=== PATIENT | male | born 1985 | race Caucasian/White ===

== ENCOUNTER 2021-08-24 10:16 | Inpatient (IN) | payer OTHER, SELFPAY ==
[2021-08-24] VITALS (37 sets, daily range): BP systolic 125–161; BP diastolic 71–109; PULSE 56–101; RESP 9–22; TEMP 36.2–36.9; O2SAT 98–100; BMI 27.3
--- NOTE | 2021-08-24 | ECHO_ITS ---
Patient Info Name: Danyel Alva Age: 35 years : 1985 Gender: Male Ht: 67 in Wt: 167 lbs BSA: 1.91 m2 HR: 69 bpm BP: 148 / 96 mmHg Heart Rhythm: Sinus Rhythm Technical Quality: Good Exam Date: 08/24/2021 4:19 PM Exam Location: [facility] Room: 211 Patient Status: Inpatient Admit Date: 08/24/2021 Staff Ordering Physician: Marcela Minaya NP Architectural Design Lecturer: Charlotte Stauffer RDCS Attending Provider: Silvia Goyal MD Referring Physician: Rei LACEY; Exam Type: CA echo doppler color flow Study Info Indications - CHEST PAIN Complete two-dimensional, color flow and Doppler transthoracic echocardiogram is performed. Summary 1. Complete two-dimensional, color flow and Doppler transthoracic echocardiogram is performed. 2. Left ventricular chamber dimension is normal. 3. Left ventricular systolic function is normal, estimated at >70%. 4. There is mildly increased left ventricular wall thickness. 5. The left ventricular diastolic function is normal. 6. There is mild mitral valve regurgitation. 7. There is mild tricuspid valve regurgitation. Left Ventricle Left ventricular chamber dimension is normal. Left ventricular systolic function is normal, estimated at >70%. There is mildly increased left ventricular wall thickness. The left ventricular diastolic function is normal. Right Ventricle Right ventricular chamber dimension is normal. Right ventricular systolic function is normal. Left Atria Left atrial chamber dimension is normal. Right Atria Right atrial chamber dimension is normal. Atrial Septum Intact interatrial septum visualized by color flow imaging. Aortic Valve The aortic valve is trileaflet. There is mild aortic valve sclerosis. There is no aortic valve stenosis. There is trace aortic valve regurgitation. Pulmonic Valve The pulmonic valve is normal. There is no pulmonic valve stenosis. There is trace pulmonic regurgitation. Mitral Valve The mitral valve has normal leaflets. There is no mitral valve stenosis. There is mild mitral valve regurgitation. Tricuspid Valve The tricuspid valve leaflets are normal. There is no significant tricuspid valve stenosis. There is mild tricuspid valve regurgitation. No pulmonary hypertension, estimated pulmonary arterial systolic pressure is 27 mmHg. Pericardium/Pleural The pericardium appears normal. There is no pericardial effusion. Inferior Vena Cava Normal inferior vena cava with >50% collapse upon inspiration consistent with normal right atrial pressure, 10 mmHg. Aorta The aortic root size at the sinus of Valsalva is normal. The prox ascending aorta size is normal. Left Ventricular Outflow Tract Name Value Normal LVOT 2D LVOT Diameter 2.1 cm LVOT Doppler LVOT Peak Gradient 7 mmHg LVOT Mean Gradient 4 mmHg LVOT VTI 25 cm LVOT VTI/AV VTI Ratio 1.0 LVOT Stroke Volume 82 ml LVOT CO 18.8 l
--- NOTE | ~2021-08-24 | XR_ITS ---
EXAMINATION: XR chest 2V DATE: 08/24/2021 10:44 INDICATION: Left chest pain. TECHNIQUE: Frontal and lateral views of the chest were obtained. COMPARISON: None. FINDINGS: The chest demonstrates clear lungs without pneumonia, pleural effusion, or pneumothorax. Th e heart size is normal. IMPRESSION: 1. No acute cardiopulmonary disease. Reviewed, dictated and finalized at location A. L MAIL CARRIER
--- NOTE | ~2021-08-24 | XR_ITS ---
EXAMINATION: XR facial bones min 3V EXAM DATE: 08/24/2021 17:53 INDICATION: Dental implants, pain at these locations. TECHNIQUE: Frontal and lateral, submentovertex projections of the dental implants. There is no prio r study for comparison. FINDINGS: There are 3 maxillary dental implants identified, 2 on the left and one on the right. Thes e appear well-seated, but please note dental x-rays are significantly more sensitive for erosive carlos ge. Visualized sinuses appear well-aerated. IMPRESSION: Unremarkable XR facial bones min 3V exam. Reviewed, dictated and finalized at location A. BOARD MECHANIC
--- NOTE | ~2021-08-24 | CT_ITS ---
EXAMINATION: CTA chest PE protocol DATE: 08/24/2021 12:15 INDICATION: Chest pain TECHNIQUE: Computed tomography angiography (CTA) of the chest was performed with 100 mL Omnipaque-350 intravenous contrast timed to evaluate the pulmonary arteries. Coronal maximum intensity projection 3D-reconstructions were created by the technologist. The dose-length product (DLP) was 395.16 mGy-cm. Automated exposure control and iterative reconstruction technique were employed. COMPARISON: None. FINDINGS: The pulmonary arteries are well-opacified. No pulmonary embolism is identified. There is de pendent atelectasis. The lungs are free of focal airspace opacities. There is no pleural effusion or pneumothorax. No pathologically enlarged thoracic lymph nodes are identified. The heart size is isiah l. IMPRESSION: 1. No pulmonary embolism or acute cardiopulmonary abnormality. Reviewed, dictated and finalized at location A. AULIC SPINNER
--- NOTE | 2021-08-24 10:18 | ECG_ITS ---
Measurements Intervals [place] Rate: 100 P: 63 RI: 134 QRS: 50 QRSD: 89 T: 55 QT: 336 QTc: 434 Interpretive Statements SINUS TACHYCARDIA BORDERLINE ST-T WAVE ABNORMALITY- DIFFUSE LEADS BASELINE ARTIFACT- I, II, III, AVR, AVL, AVF, V3-V5 BORDERLINE ECG Electronically Signed On 08-24-2021 10:28:52 SURGICAL TECH by Dipesh Lindsay D.O.
[2021-08-24 10:45] LABS: Basophils Percent Auto 0.4 % (0.2-1.2); Eosinophils Absolute Auto 0.2 K/mm3 (0-0.3); Eosinophils Percent Auto 2.3 % (0-4.4); Hematocrit 39.8 % (42.0-52.0); Immature Granulocyte Absolute 0.02 K/mm3 (0.00-0.031); Immature Granulocyte Percent A 0.3 % (0-0.5); Lymphocytes Absolute Auto 1.94 K/mm3 (0.9-3.2); Lymphocytes Percent Auto 26.1 % (18.3-44.2); Mean Corpuscular HGB Conc 35.2 g/dl (32-36); Mean Corpuscular Hemoglobin 30.3 pg (26-34); Mean Corpuscular Volume 86.1 fl (80-100); Mean Platelet Volume 9.6 fl (7.4-10.4); Monocytes Absolute Auto 0.6 K/mm3 (0.1-0.6); Monocytes Percent Auto 8.5 % (2.6-8.5); Neutrophils Absolute Auto 4.6 K/mm3 (1.3-6.7); Neutrophils Percent Auto 62.4 % (45.5-73.1); Platelet Count Result 355 k/mm3 (150-375); Red Blood Count 4.62 M/mm3 (4.6-6.20); White Blood Count 7.4 K/mm3 (4.5-10.0)
[2021-08-24 10:54] LABS: INR 0.9; Prothrombin Time 12.1 Seconds (11.1-14.7)
[2021-08-24 10:55] LABS: Partial Thromboplastin Time 22.9 SECONDS (22.3-36.8)
[2021-08-24 10:59] LABS: Alanine Aminotransferase 60 U/L (4-50); Albumin Level 4.6 g/dL (3.5-5.1); Alkaline Phosphatase 79 U/L (38-126); Anion Gap 11 mmol/L (8-16); Aspartate Amino Transferase 60 U/L (17-59); Bilirubin,Total 0.4 mg/dL (0.2-1.3); Blood Urea Nitrogen 12 mg/dL (9-20); Calcium 9.2 mg/dL (8.4-10.2); Carbon Dioxide 27 mmol/L (22-30); Chloride 99 mmol/L (98-107); Estimated CRCL calculation 104 ml/min; Estimated Glomerular Filt Rate > 60; Glucose 190 mg/dL (65-110); Lipase 23 U/L (23-300); Potassium 3.3 mmol/L (3.4-5.0); Sodium 137 mmol/L (137-145)
[2021-08-24] MEDS: ASPIRIN 81 MG CHEWABLE TABLET 324 MG PO (11:35)
--- NOTE | 2021-08-24 12:05 | PC.NURSE ---
Pt gone to CT
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
[2021-08-24] MEDS: SODIUM CHLORIDE 0.9% IV 1,000 ML 125 ML IV CONT (14:08)
[2021-08-24] MEDS: HEPARIN SODIUM 5,000 UNITS/ML VIAL 4000 UNITS IV PUSH (14:13)
[2021-08-24] MEDS: HEPARIN SOD/D5W 100 UNITS/ML 25,000 UNITS/250 ML BAG 9 UNITS IV CONT (14:13)
[2021-08-24] MEDS: POTASSIUM CHLORIDE 20 MEQ PACKET (FOR LIQUID) PO (14:15)
[2021-08-24] MEDS: AMOXICILLIN 500 MG CAPSULE PO ×2 (14:30→20:50)
--- NOTE | 2021-08-24 14:30 | PC.NURSE ---
Indoor Landscape Architect at bedside
--- NOTE | 2021-08-24 14:31 | PC.NURSE ---
Running heparin alone will continue NS maintenance fluids in another site
--- NOTE | 2021-08-24 14:40 | PC.NURSE ---
Report given to Rosario DORANTES
--- NOTE | 2021-08-24 15:11 | PC.NURSE ---
Traveling with fluids and heparin drip
--- NOTE | 2021-08-24 15:27 | PM.CNCAR ---
Assessment and Plan Assessment and plan (1) Chest pain: Qualifiers: Chest pain type: unspecified Qualified Code(s): R07.9 - Chest pain, unspecified Code(s): R07.9 - Chest pain, unspecified Status: Acute Assessment and Plan: Not typical for ACS but certainly possible. He has few risk factors for coronary disease and was very active yesterday moving boxes has he was assisting his in-laws and moving into a new house. The fact that he had a similar episode a year ago and his description points towards other etiology including possible pericarditis, myocarditis (recent COVID infection) but again ACS is not excluded. Will continue trend with serial cardiac enzymes. Will keep NPO after midnight for possible coronary angiogram tomorrow. Stat 2D echocardiogram with Doppler. Will check an ESR as well as a CRP. Will start metoprolol tartrate at 25 mg p.o. b.i.d.. Aspirin 81 mg p.o. daily to be given also. At least for now, heparin drip will be initiated until other workup is performed. No pericardial effusion was seen on CT scan. Will also check a fasting lipid panel as well as a glycohemoglobin given his elevated glucose. EKG in the morning (2) Tobacco use: Code(s): Z72.0 - Tobacco use Status: Acute Assessment and Plan: Tobacco abuse counseling performed and cessation recommended (3) Elevated troponin: Code(s): R77.8 - Other specified abnormalities of plasma proteins Status: Acute Assessment and Plan: As detailed above (4) Hypokalemia: Code(s): E87.6 - Hypokalemia Status: Acute Assessment and Plan: KCL 40 mg p.o. x1. History of Present Illness History of Present Illness Consult date/time: 08/24/21 15:27 Requesting physician: Trung Garcia MD Consult reason: chest pain Reason For Visit: elevated troponin Narrative: Reason for consultation: Chest pain, elevated troponins Date of service 08/24/2021 next Requesting provider: Dr. Garcia History: Patient is a 35-year-old male presented to the hospital because chest pain. Patient has been having chest pain off and on for the past 2-3 days. His episodes occur randomly will last for 10-30 minutes at a time. He does think that it is improved whenever he lifts his arms above his head. Sometimes he thinks it may get better if he rubs his chest or if he sits up. It is not necessarily exertional. He had a similar episode last year while in [place]. Last years episodes lasted off and on for couple of months. He did see a physician who told him it was stress related. His white blood cell count was also a little bit elevated at that time. No further workup for details are known except for that he states that the EKG performed at that time was unremarkable. His chest pain was severe this morning and he decided to come to the hospital for further workup. His troponins initially are 1.25 and follow-up troponin is 1.5. He has no associated nausea, shortness of breath or diaphoresis. It does not radiate to his jaw and back. He does have a little bit of radiation towards the left shoulder area. It occurs 3-4 times daily. He was helping to move his in-laws yesterday and performing heavy activity and had no problems in doing so. He has been taking a combination of Tylenol and NSAIDs at the same time which also seems to help. He did have COVID a few weeks ago and was diagnosed on August 05 and had a few days worth of symptoms prior to that. Symptoms of COVID include fever muscle aches. He does smoke cigarettes and rare marijuana use but no other drug use. No other risk factors. He is currently pain-free Review of Systems Review of Systems: All systems reviewed & are unremarkable except as noted in HPI and below Constitutional: Constitutional: Denies weakness Eyes: Eyes: Denies blurry vision ENT: Reports Normal hearing present Cardiovascular: Cardiovascular: Reports chest pain Respirato
[2021-08-24] MEDS: POTASSIUM CHLORIDE 20 MEQ TABLET 40 MEQ PO (16:19)
[2021-08-24 16:25] LABS: Basophils Percent Auto 0.4 % (0.2-1.2); Eosinophils Absolute Auto 0.1 K/mm3 (0-0.3); Eosinophils Percent Auto 1.1 % (0-4.4); Hematocrit 36.6 % (42.0-52.0); Hemoglobin 12.5 g/dL (14.0-18.0); Immature Granulocyte Absolute 0.03 K/mm3 (0.00-0.031); Immature Granulocyte Percent A 0.3 % (0-0.5); Lymphocytes Absolute Auto 2.19 K/mm3 (0.9-3.2); Lymphocytes Percent Auto 22.8 % (18.3-44.2); Mean Corpuscular HGB Conc 34.2 g/dl (32-36); Mean Corpuscular Hemoglobin 30.1 pg (26-34); Mean Corpuscular Volume 88.2 fl (80-100); Mean Platelet Volume 9.8 fl (7.4-10.4); Monocytes Absolute Auto 0.6 K/mm3 (0.1-0.6); Neutrophils Absolute Auto 6.7 K/mm3 (1.3-6.7); Neutrophils Percent Auto 69.4 % (45.5-73.1); Platelet Count Result 318 k/mm3 (150-375); Red Blood Count 4.15 M/mm3 (4.6-6.20); Red Cell Distribution Width 13.2 % (11.5-14.5); White Blood Count 9.6 K/mm3 (4.5-10.0)
--- NOTE | 2021-08-24 16:31 | ADMGEN ---
This patient, Danyel Alva, was admitted to IMU Room 211-01 at 1510. Patient/family oriented to hospital policies and general routines including ID bracelet, bed and alarms, visiting hours, pain management, procedures, bathroom and other care routines, personal items, smoking policy, room service/diet, and visiting hours. Information on how to activate the Rapid Response Team has been discussed. Patient/Family are encouraged to report perceived risks to care and to ask questions if they do not understand what they are told or what they should do.
[2021-08-24 16:36] LABS: Prothrombin Time 13.4 Seconds (11.1-14.7)
[2021-08-24 16:37] LABS: Partial Thromboplastin Time 77.9 SECONDS (22.3-36.8)
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
[2021-08-24 17:18] LABS: CRP < 0.5 mg/dL (<1.0); Cholesterol 233 mg/dL (0-200); HDL Direct 44 mg/dL; Triglycerides 97 mg/dL (<150)
[2021-08-24 17:29] LABS: LDL Cholesterol Direct 154 mg/dL
[2021-08-24 17:39] LABS: Erythrocyte Sedimentation Rate 19 mm/hr (0-20)
[2021-08-24 19:28] LABS: Hemoglobin A1C 5.8 % (<5.7)
[2021-08-24 19:52] LABS: Partial Thromboplastin Time 56.2 SECONDS (22.3-36.8)
[2021-08-24] MEDS: HEPARIN SODIUM 5,000 UNITS/ML VIAL 3000 UNITS IV PUSH (20:49)
[2021-08-24] MEDS: METOPROLOL TARTRATE 25 MG TABLET PO (20:50)
[2021-08-24] MEDS: SODIUM CHLORIDE 0.9% IV 1,000 ML 75 ML IV CONT (20:50)
[2021-08-25] VITALS (16 sets, daily range): BP systolic 118–141; BP diastolic 70–86; PULSE 56–103; RESP 15–20; TEMP 36.2–36.6; O2SAT 93–99
[2021-08-25 03:29] LABS: Basophils Percent Auto 0.5 % (0.2-1.2); Eosinophils Absolute Auto 0.2 K/mm3 (0-0.3); Eosinophils Percent Auto 2.9 % (0-4.4); Hematocrit 36.8 % (42.0-52.0); Hemoglobin 12.6 g/dL (14.0-18.0); Immature Granulocyte Absolute 0.02 K/mm3 (0.00-0.031); Immature Granulocyte Percent A 0.3 % (0-0.5); Lymphocytes Absolute Auto 3.28 K/mm3 (0.9-3.2); Lymphocytes Percent Auto 41.1 % (18.3-44.2); Mean Corpuscular HGB Conc 34.2 g/dl (32-36); Mean Corpuscular Hemoglobin 30.1 pg (26-34); Mean Platelet Volume 9.6 fl (7.4-10.4); Monocytes Absolute Auto 0.7 K/mm3 (0.1-0.6); Monocytes Percent Auto 8.4 % (2.6-8.5); Neutrophils Absolute Auto 3.8 K/mm3 (1.3-6.7); Neutrophils Percent Auto 46.8 % (45.5-73.1); Platelet Count Result 283 k/mm3 (150-375); Red Blood Count 4.18 M/mm3 (4.6-6.20); Red Cell Distribution Width 13.3 % (11.5-14.5)
[2021-08-25 03:41] LABS: Alanine Aminotransferase 59 U/L (4-50); Alkaline Phosphatase 72 U/L (38-126); Anion Gap 4 mmol/L (8-16); Aspartate Amino Transferase 57 U/L (17-59); Bilirubin,Total 0.4 mg/dL (0.2-1.3); Blood Urea Nitrogen 8 mg/dL (9-20); Calcium 8.7 mg/dL (8.4-10.2); Carbon Dioxide 27 mmol/L (22-30); Chloride 105 mmol/L (98-107); Estimated CRCL calculation 113 ml/min; Estimated Glomerular Filt Rate > 60; Glucose 109 mg/dL (65-110); Lactic Acid Reflex 0.7 mmol/L (0.7-2.1); Potassium 3.9 mmol/L (3.4-5.0); Sodium 136 mmol/L (137-145)
[2021-08-25 03:49] LABS: Partial Thromboplastin Time 93.8 SECONDS (22.3-36.8)
[2021-08-25] MEDS: AMOXICILLIN 500 MG CAPSULE PO ×2 (05:03→15:50)
[2021-08-25 07:55] LABS: Glucose Point of Care 116 mg/dl (65-105)
--- NOTE | 2021-08-25 08:00 | ECG_ITS ---
Measurements Intervals [place] Rate: 76 P: 34 [place]: 122 QRS: 42 QRSD: 90 T: 76 QT: 367 QTc: 415 Interpretive Statements SINUS RHYTHM NONSPECIFIC T-WAVE ABNORMALITY- HIGH LATERAL LEADS BORDERLINE ECG Electronically Signed On 08-25-2021 16:35:17 RESIDENTIAL PROPERTY CONSULTANT by Dipesh Lindsay D.O.
[2021-08-25] MEDS: SODIUM CHLORIDE 0.9% IV 1,000 ML 75 ML IV CONT (10:26)
[2021-08-25] MEDS: ASPIRIN 81 MG ENTERIC TABLET PO (10:27)
[2021-08-25] MEDS: METOPROLOL TARTRATE 25 MG TABLET PO (10:27)
[2021-08-25] MEDS: LORATADINE 10 MG TABLET PO (10:41)
--- NOTE | 2021-08-25 12:21 | PM.IMPN ---
Progress Note: A&P Assessment and Plan (1) Chest pain: Qualifiers: Chest pain type: unspecified Qualified Code(s): R07.9 - Chest pain, unspecified Code(s): R07.9 - Chest pain, unspecified Status: Acute Assessment and Plan: Troponin to 2.7. EKG showing diffuse ST-T wave changes. Heparin drip was started. Continue ASA. Cardiology has been consulted. No further complaints of any chest pain. Echo showing no wall motion abnormalities with normal diastolic dysfunction and EF 70%. Probably pericarditis but plan for [facility] to rule out ischemic coronary disease. Follow-up on heart catheterization results. Check urine drug screen. (2) Elevated troponin: Code(s): R77.8 - Other specified abnormalities of plasma proteins Status: Acute Assessment and Plan: As above. (3) Hypokalemia: Code(s): E87.6 - Hypokalemia Status: Acute Assessment and Plan: Potassium slightly low on admission at 3.3. This was replaced and has normalized. Continue to monitor. (4) Elevated blood pressure reading: Code(s): R03.0 - Elevated blood-pressure reading, without diagnosis of hypertension Status: Acute Assessment and Plan: Blood pressure was 159/109 on admission. He was started on metoprolol with improvement. Continue to monitor. Continue to adjust medications as needed. (5) Elevated blood sugar: Code(s): R73.9 - Hyperglycemia, unspecified Status: Acute Assessment and Plan: Glucose was 190 on admission. Fasting glucose was 109 this morning. A1c of okay at 5.8. Continue AccuCheks covering with sliding scale. Hypoglycemia protocol available as needed. Continue to monitor. Benefits of leading a healthy lifestyle have been discussed. 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 He was started empirically on amoxicillin for possible dental infection. Blood cultures were collected and are no growth to date. Facial CT showing no acute findings. (7) Tobacco use: Code(s): Z72.0 - Tobacco use Status: Acute Assessment and Plan: Patient was educated about the benefits of smoking cessation. Subjective Date/time seen: 08/25/21 12:21 Interval history: 35yo male with hx of tobacco abuse here for chest pain and found to have elevated Troponin. 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 Again, no chest pain symptoms until the morning of 08/24 which he awoke from. He describes it as 'sore' and 'tight and occasionally heavy'. No SOB or nausea. Did take tylenol and ibuprofen before he presented tot he ED and pain resolved. No HTN, DM, HLD. No calf pain. COVID diagnosed on 08/05. he is unvaccinated. He has hx of dental implants 9-10 yrs ago. The upper row was sore but better now. He does not have a doctor or dentist. he smokes 1/2ppd but has smoked up to 1ppd x 14yrs. Exam Narrative: AF 97.9 122/77 103 16 99% ra Gen - NARD Chest - CTA bilaterally, nml RR CV - RRR S1/S2; Tele showing occasional sinus tachycardia Abd - Soft, NT/ND, Positive BS Ext - No pedal edema Neuro - Alert and oriented. Nonfocal exam. Psych - Nml mood and affect Skin - Warm and dry Objective Data Vital Signs Vital Signs: Vital Signs - 24 hr 08/24/21 12:25 08/24/21 12:30 08/24/21 12:42 Temperature Pulse Rate 80 90 85 Respiratory Rate 15 22 H 12 Blood Pressure 140/85 Pulse Oximetry 08/24/21 12:45 08/24/21 12:51 08/24/21 13:00 Temperature Pulse Rate 66 101 H 76 Respiratory Rate 9 L 19 14 Blood Pressure 154/96 H Pulse Oximetry 98 08/24/21 13:15 08/24
--- NOTE | 2021-08-25 12:33 | WPDMODSED ---
Moderate Sedation Note-Pt Data Patient Data Diagnosis: Chest pain with elevated troponin Present Complaint: no complaints currently Procedure to be performed/Plan: left heart catheterization Allergies Allergy/AdvReac Type Severity Reaction Status Date / Time No Known Drug Allergies Allergy Unknown Verified 08/24/21 11:20 Home Medications Medication Instructions Recorded Confirmed Type loratadine [Claritin] 10 mg PO DAILY 08/24/21 08/24/21 History Current Medications: Active Medications Amoxicillin (Amoxicillin 500 Mg Capsule) 500 mg PO Q8HR [facility] Last Admin: 08/25/21 05:03 Dose: 500 mg Documented by: Aspirin (Aspirin 81 Mg Enteric Tablet) 81 mg PO QAM [facility] Last Admin: 08/25/21 10:27 Dose: 81 mg Documented by: Dextrose (Dextrose 50% 25 Gm/50 Ml Syringe) 12.5 gm IV PUSH PRN PRN; Protocol PRN Reason: Hypoglycemia Glucagon (Glucagon For Inj 1 Mg Vial) 1 mg IM PRN PRN; Protocol PRN Reason: Hypoglycemia Glucose (Glucose Oral Gel 15 Gm Of Glucse In 37.5 Gm Tube) 15 gm PO PRN PRN; Protocol PRN Reason: Hypoglycemia Heparin Sodium (Porcine) (Heparin Sodium 5,000 Units/Ml Vial) 4,000 units IV PUSH PRN PRN PRN Reason: aPTT less than 55 seconds Heparin Sodium (Porcine) (Heparin Sodium 5,000 Units/Ml Vial) 3,000 units IV PUSH PRN PRN PRN Reason: aPTT 55 - 70 seconds Last Admin: 08/24/21 20:49 Dose: 3,000 units Documented by: Heparin Sodium/Dextrose (Heparin Sodium/D5w 100 Units/Ml) 25,000 units in 250 mls @ 0 mls/hr IV CONT .Q0M [facility]; Protocol Last Titration: 08/25/21 10:34 Dose: 0 units/hr, 0 mls/hr Documented by: Acetaminophen (Ofirmev 1,000 Mg Ivpb) 1,000 mg in 100 mls @ 400 mls/hr IVPB Q6H PRN PRN Reason: Mild Pain (1-3) or Fever Stop: 08/25/21 13:14 Sodium Chloride (Normal Saline Iv) 1,000 mls @ 75 mls/hr IV CONT .[id number] [facility] Last Admin: 08/25/21 10:26 Dose: 75 mls/hr Documented by: Dextrose (Dextrose 5% 1,000 Ml) 1,000 mls @ 100 mls/hr IVPB PRN PRN; Protocol PRN Reason: Hypoglycemia Insulin Aspart (Insulin Aspart (*Bkc) 100 Units/Ml) 2 - 5 units SUB-Q TIDWM ABHISHEK; Protocol Last Admin: 08/25/21 10:19 Dose: Not Given Documented by: Loratadine (Loratadine 10 Mg Tablet) 10 mg PO DAILY [facility] Last Admin: 08/25/21 10:41 Dose: 10 mg Documented by: Metoprolol Tartrate (Metoprolol Tartrate 25 Mg Tablet) 25 mg PO Q12HR [facility] Last Admin: 08/25/21 10:27 Dose: 25 mg Documented by: Sedation/Anesthesia: No previous sedation/anesthesia problems (including family history). 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 She recently moved here from [place]. The patient continues to smoke about half pack a cigarettes a day. He typically does not drink any alcohol but said he had a couple shots of alcohol (vodka) this morning because his left jaw was hurting him. The patient denies any illicit drugs however he does occasionally smoke marijuana. His is the durable power admitted attorneys for healthcare. Code status full code Smoking packs per day: 0.5 Smoking cigarettes per day: 10.0 Years smoked: 12 Smoking pack-years: 6.00 Smoking status: Current every day smoker Tobacco type: cigarettes Alcohol use details: Rare alcohol use Substance use type: marijuana Spiritual care concerns: No Mod Sed Physical Exam Physical
--- NOTE | 2021-08-25 12:34 | P.PCNCC_ITS ---
Cardiac Cath Procedure Note Date of procedure:: 08/25/21 Performing physician:: Ki Cristobal MD Indication:: chest pain with elevated troponin Brief clinical history:: this is a 35-year-old man without previous history of cardiac problems who has been having intermittent chest pain for the last couple of weeks. Upon admission to the hospital his troponin was found to be elevated. Electrocardiogram shows some nonspecific T-wave abnormalities. Procedure Procedure performed:: Left ventriculography coronary angiography Angio-Seal to right femoral artery Sedation/Medication given:: fentanyl 50 mg Versed 2 mg case start time 12:04 p.m. case end time 12:28 p.m. sedation provided by Katina Forrest RN, trained observer Access site:: right femoral artery Estimated blood loss:: 15 cc Procedure note:: patient was brought to the cardiac catheterization lab in the postabsorptive state. Right femoral triangle was prepared and draped the usual fashion. Anesthesia was 1% lidocaine infiltrated locally. Using modified Seldinger technique 5 Gambian sheath was placed into the right femoral artery and left heart catheterization carried out. A 5 Gambian angled pigtail catheter was document left-sided hemodynamics and to inject the in the LEBLANC projection. After this I engaged injected the left coronary initially using 5 catheter and then subsequently with a 5 Gambian AL1 catheter. After this I used 5 Gambian JR4 to engage and inject the right coronary artery. The cineangiograms were then reviewed and the case was terminated. An angiogram was done of the femoral artery through the sheath after which an Angio-Seal device was deployed with a good hemostatic result. The procedure was well tolerated and without apparent complication. He left the clinical laboratory technician with no evidence of a groin hematoma. Findings:: Hemodynamics: Central pressure is 132 over 76 left ventricle 142 over 0 end-diastolic of 8. Left ventricle: The LV is normal in size contractility appears to be hyperdynamic in all segments the ejection fraction is 80% by visual estimation the left main coronary artery is short but nicely patent the left anterior descending medium caliber vessel extending down to the apex. The LAD is smooth and angiographically normal in appearance the circumflex is a moderate caliber artery giving rise to the marginal branches. The circumflex is mildly diseased in the midportion there appears to be 1 segment where there is about 30% stenosis in the mid trunk of the circumflex the remainder of the vessel is angiographically smooth and normal in appearance. The right coronary artery is large caliber and dominant to posterior circulation right artery is smooth and angiographically free of disease. Conclusion:: 1. Angiographically minimal coronary disease with right dominant circulation. Patient has about 30% stenosis of the mid trunk of the circumflex. 2. Hyperdynamic left ventricular systolic function Ki Cristobal MD [facility]
--- NOTE | 2021-08-25 13:30 | PC.NURSE ---
On 08/25/21, the student, [Estrella Frank], provided care and completed [facility] documentation on this patient. I have reviewed the student's documentation and agree with the findings.
[2021-08-25] MEDS: ACETAMINOPHEN 325 MG TABLET 650 MG PO (15:49)
--- NOTE | 2021-08-25 16:28 | PM.DS ---
DS: Admitting Diagnosis Discharge Date 08/25/21 Admitting Diagnosis Chest pain DS: Discharge Diagnosis Discharge Diagnosis (1) Chest pain: Qualifiers: Chest pain type: unspecified Qualified Code(s): R07.9 - Chest pain, unspecified Code(s): R07.9 - Chest pain, unspecified Status: Acute Assessment and Plan: Patient presented with complaints of chest pain. Troponin climbed to 2.7. EKG showing diffuse ST-T wave changes. Heparin drip was started. He was started on ASA. Cardiology was consulted. Chest pain resolved. Echo showing no wall motion abnormalities with normal diastolic dysfunction and EF 70%. LHC performed 08/25 showing angiographically minimal coronary disease with right dominant circulation with about 30% stenosis of the mid trunk of the circumflex. He may have had pericarditis or myocarditis. Plan for medical management. He will follow up with Cardiology after discharge. Patient did well and was able to be discharged home on 08/25/21 (2) Elevated troponin: Code(s): R77.8 - Other specified abnormalities of plasma proteins Status: Acute Assessment and Plan: As above. (3) Hypokalemia: Code(s): E87.6 - Hypokalemia Status: Acute Assessment and Plan: Potassium slightly low on admission at 3.3. This was replaced and has normalized. (4) Elevated blood pressure reading: Code(s): R03.0 - Elevated blood-pressure reading, without diagnosis of hypertension Status: Acute Assessment and Plan: Blood pressure was 159/109 on admission. He was started on metoprolol with improvement. (5) Elevated blood sugar: Code(s): R73.9 - Hyperglycemia, unspecified Status: Acute Assessment and Plan: Glucose was 190 on admission. Fasting glucose was 109 the next morning. A1c was okay at 5.8. He was monitored with AccuCheks covering with sliding scale. Hypoglycemia protocol was available as needed. Benefits of leading a healthy lifestyle have been discussed. 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 He was started empirically on amoxicillin for possible dental infection. Blood cultures were collected and are no growth to date. Facial CT showing no acute findings. His symptoms were improving. Opted to continued the Amoxicillin for a 7 day course. He was advised to follow up with a dental surgeon for evaluation. (7) Tobacco use: Code(s): Z72.0 - Tobacco use Status: Acute Assessment and Plan: Patient was educated about the benefits of smoking cessation. DS: Summary Hospital Course Reason for hospitalization: 35yo male here for chest pain . Please see H&P for details Hospital Course: Please see above for details of hospital course Status at Discharge Cognitive/behavioral status at discharge: stable Time Spent with Patient Time attestation: Total time spent providing and/or coordinating discharge services: 38 minutes Time spent: Greater than 30 minutes Exam Narrative: AF 97.9 122/77 103 16 99% ra Gen - NARD Chest - CTA bilaterally, nml RR CV - RRR S1/S2; Tele showing occasional sinus tachycardia Abd - Soft, NT/ND, Positive BS Ext - No pedal edema Neuro - Alert and oriented. Nonfocal exam. Psych - Nml mood and affect Skin - Warm and dry DS: Data Data Completed and Pending Labs on day of discharge: Labs from last 24 hours 08/25/21 08/25/21 08/25/21 15:43 07:39 03:21 WBC RBC Hgb Hct MCV MCH MCHC RDW Plt Count MPV Immature Gran % (Auto) Neut % (Auto) Lymph % (Auto) [place] % (Auto) Eos % (Auto) Baso % (Auto) Lymph # (Auto) [place] # (Auto) Eos # (Auto) Baso # (Auto) Abs Immat Gr
[2021-08-25 16:45] LABS: Glucose Point of Care 90 mg/dl (65-105)
[2021-08-25 16:57] LABS: Amphetamine Screen Urine Negative (Negative); Barbiturate Screen Urine Negative (Negative); Benzodiazepines Screen Urine Positive (Negative); Cannabinoid Screen Urine Positive (Negative); Cocaine Screen Urine Negative (Negative); Methadone Screen Urine Negative (Negative); Opiate Screen Urine Negative (Negative); Phencyclidine Screen Urine Negative (Negative)
--- NOTE | 2021-09-06 11:27 | PC.NURSE ---
Blood cx are negative.
== END 2021-08-25 17:30 | disposition home or self-care (01) | DRG 192 ==
LOC: ANHED 13:20 → ANHIMU 14:26
PROVIDERS: Internal Medicine Cardiovascular Disease; Nurse Practitioner; Specialist; Admitting Provider Internal Medicine; Emergency Provider Emergency Medicine; Visit Provider Internal Medicine
PROC: 4A023N7 Measurement of Cardiac Sampling and Pressure, Left Heart, Percutaneous Approach (ICD-10-PCS; 2021-08-25 12:00)
PROC: 4A023N7 Measurement of Cardiac Sampling and Pressure, Left Heart, Percutaneous Approach (ICD-10-PCS; CPT 93452; 2021-08-25 12:00)
DX: R07.9 Chest pain, unspecified (principal); R77.8 Other specified abnormalities of plasma proteins; I25.10 Atherosclerotic heart disease of native coronary artery without angina pectoris; R03.0 Elevated blood-pressure reading, without diagnosis of hypertension; E87.6 Hypokalemia; R73.9 Hyperglycemia, unspecified; M27.62 Post-osseointegration biological failure of dental implant; F17.210 Nicotine dependence, cigarettes, uncomplicated
CPT/HCPCS: 36415; 70150; 71046; 71275; 80053; 80061; 80307; 82728; 82948; 83036; 83605; 83690; 83735; 84443; 84484; 85025; 85610; 85652; 85730; 86140; 87040; 93005; 93306; 93458; 93459; 96365; 96366; 99285; A9270; C1760; C1887; C1894; G0269; G0379; J1644; J2250; J3010; J7030; Q9967

== ENCOUNTER 2022-10-15 13:24 | Emergency (ER) | payer OTHER, SELFPAY ==
[2022-10-15 13:25] VITALS: BP 142/76; PULSE 100; RESP 17; TEMP 36.6; O2SAT 100
--- NOTE | 2022-10-15 14:29 | ED.GENADULT ---
HPI - General Adult General Chief complaint: Wound/Laceration Stated complaint: finger infection Time Seen by Provider: 10/15/22 14:06 History of Present Illness HPI narrative: Patient is a 37-year-old male who presents ER with concern for infection to his right index finger. He is scratched by his cat a week ago. Over the last couple days he has developed redness and swelling. No drainage. No fevers chills or sweats. No numbness or tingling. No additional concerns Related Data Home Medications Medication Instructions Recorded Confirmed loratadine 10 mg tablet (Claritin) 10 mg PO DAILY 08/24/21 08/24/21 Allergies Allergy/AdvReac Type Severity Reaction Status Date / Time No Known Drug Allergies Allergy Unknown Verified 10/15/22 13:25 Review of Systems Constitutional: Constitutional: Denies chills and Denies fever(s) Musculoskeletal: Musculoskeletal: Denies arthralgias and Denies joint swelling Integumentary/Breasts: Skin/Breast: Reports erythema, Denies rash and Denies skin ulcer Comments: Finger swelling PMFSH Past Medical History Medical History 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 She recently moved here from [place]. The patient continues to smoke about half pack a cigarettes a day. He typically does not drink any alcohol but said he had a couple shots of alcohol (vodka) this morning because his left jaw was hurting him. The patient denies any illicit drugs however he does occasionally smoke marijuana. His is the durable power collections attorney for healthcare. Code status full code Smoking packs per day: 0.5 Smoking cigarettes per day: 10.0 Years smoked: 12 Smoking pack-years: 6.00 Smoking status: Current every day smoker Tobacco type: cigarettes Alcohol use details: Rare alcohol use Substance use type: marijuana Spiritual care concerns: No Exam Narrative: GENERAL: Well-appearing, well-nourished, and in no acute distress. HEAD: Normocephalic, atraumatic. EXTREMITIES: Normal range of motion. No edema. SKIN: Warm, dry, no rash. Paronychia right index finger very small. NEURO: Alert and oriented x3. PSYCH: Normal mood and affect. Course Course Emergency Course: 18-gauge used to puncture paronychia. Small purulent drainage obtained. Discussed soaking finger and continue to try to squeeze out pus at home while taking his normal antibiotics. Patient verbalized understanding. Discharge home. Vital Signs Vital signs: Vital Signs Temperature 97.8 F 10/15/22 13:25 Pulse Rate 100 10/15/22 13:25 Respiratory Rate 10/15/22 13:25 Blood Pressure 142/76 H 10/15/22 13:25 Pulse Oximetry 100 10/15/22 13:25 Temperature 97.8 F 10/15/22 13:25 Pulse Rate 100 10/15/22 13:25 Respiratory Rate 17 10/15/22 13:25 Blood Pressure 142/76 H 10/15/22 13:25 Pulse Oximetry 100 10/15/22 13:25 Medical Decision Making Vital Signs Vital Signs: Vital Signs Temperature 97.8 F 10/15/22 13:25 Pulse Rate 100 10/15/22 13:25 Respiratory Rate 17 10/15/22 13:25 Blood Pressure 142/76 H 10/15/22 13:25 Pulse Oximetry 100 10/15/22 13:25 Temperature 97.8 F 10/15/22 13:25 Pulse Rate 100 10/15/22 13:25 Respiratory Rate 17 10/15/22 13:25 Blood Pressure 142/76 H 10/15/22 13:25 Pulse Oximetry 100 10/15/22 13:25
== END 2022-10-15 14:57 | disposition home or self-care (01) ==
PROVIDERS: Emergency Provider Emergency Medicine
DX: L03.011 Cellulitis of right finger (principal); Z86.16 Personal history of COVID-19; F17.210 Nicotine dependence, cigarettes, uncomplicated
CPT/HCPCS: 26010; 99283

== ENCOUNTER 2022-11-11 14:22 | Emergency (ER) | payer OTHER, SELFPAY ==
[2022-11-11] VITALS (9 sets, daily range): BP systolic 114–145; BP diastolic 73–95; PULSE 57–78; RESP 6–16; TEMP 36.6–37.2; O2SAT 99–100
--- NOTE | ~2022-11-11 | XR_ITS ---
EXAMINATION: XR chest 2V Exam Date/Time: 11/11/2022 14:53 FLUX CORE WELDER HISTORY: chest pain, hx: cardiac cath Comparison: 08/24/2021. RESULT: Lines, tubes, and devices: None. Lungs and pleura: Clear. Cardiomediastinal silhouette: Stable. Other: No acute osseous or upper abdominal finding. IMPRESSION: No acute cardiopulmonary process. Reviewed, dictated and finalized at location K. CORE WELDER
--- NOTE | 2022-11-11 14:25 | ECG_ITS ---
Measurements Intervals [place] Rate: 73 P: 45 WI: 126 QRS: 44 QRSD: 93 T: 70 QT: 359 QTc: 397 Interpretive Statements SINUS RHYTHM NORMAL ELECTROCARDIOGRAM COMPARED TO ECG 08/25/2021 09:38:41 NO SIGNIFICANT CHANGES Electronically Signed On 11-12-2022 8:01:14 EGG CANDLER by Ki Cristobal M.D.
[2022-11-11 14:56] LABS: Basophils Absolute Auto 0.1 K/mm3 (0.0-0.1); Basophils Percent Auto 0.8 % (0.2-1.2); Eosinophils Absolute Auto 0.2 K/mm3 (0-0.3); Eosinophils Percent Auto 2.8 % (0-4.4); Hematocrit 46.1 % (42.0-52.0); Hemoglobin 15.4 g/dL (14.0-18.0); Immature Granulocyte Absolute 0.02 K/mm3 (0.00-0.031); Immature Granulocyte Percent A 0.3 % (0-0.5); Lymphocytes Absolute Auto 2.86 K/mm3 (0.9-3.2); Lymphocytes Percent Auto 39.8 % (18.3-44.2); Mean Corpuscular HGB Conc 33.4 g/dl (32-36); Mean Corpuscular Hemoglobin 29.7 pg (26-34); Mean Platelet Volume 9.2 fl (7.4-10.4); Monocytes Absolute Auto 0.6 K/mm3 (0.1-0.6); Monocytes Percent Auto 8.8 % (2.6-8.5); Neutrophils Absolute Auto 3.4 K/mm3 (1.3-6.7); Neutrophils Percent Auto 47.5 % (45.5-73.1); Platelet Count Result 299 k/mm3 (150-375); Red Blood Count 5.18 M/mm3 (4.6-6.20); Red Cell Distribution Width 12.8 % (11.5-14.5); White Blood Count 7.2 K/mm3 (4.5-10.0)
[2022-11-11 15:09] LABS: Alanine Aminotransferase 35 U/L (6-50); Alkaline Phosphatase 78 U/L (38-126); Anion Gap 6 mmol/L (8-16); Aspartate Amino Transferase 30 U/L (17-59); Bilirubin,Total 0.6 mg/dL (0.2-1.3); Blood Urea Nitrogen 13 mg/dL (9-20); Calcium 9.4 mg/dL (8.4-10.2); Carbon Dioxide 31 mmol/L (22-30); Chloride 100 mmol/L (98-107); Estimated CRCL calculation 88 ml/min; Estimated Glomerular Filt Rate > 60; Glucose 112 mg/dL (65-110); Lipase 22 U/L (23-300); Potassium 4.2 mmol/L (3.4-5.0); Sodium 137 mmol/L (137-145)
[2022-11-11 15:11] LABS: Prothrombin Time 12.7 Seconds (11.1-14.7)
[2022-11-11 15:12] LABS: Partial Thromboplastin Time 24.2 SECONDS (22.3-36.8)
[2022-11-11 15:21] LABS: Troponin I < 0.012 ng/mL (0.000-0.034)
--- NOTE | 2022-11-11 16:17 | ED.GENADULT ---
HPI - General Adult General Chief complaint: Chest Pain Stated complaint: chest pain Time Seen by Provider: 11/11/22 15:04 History of Present Illness HPI narrative: Patient is a 37-year-old male who presents ER with left-sided chest discomfort. Began today. Intermittent. Under left armpit. Also goes into the back of his shoulder. Associate with some tingling in his hand. He has some continued tingling in his left hand despite having no pain at this time. No diaphoresis. Had myocarditis several months ago that Showed no obstructive coronary lesions. No exertional dyspnea or chest discomfort. No fevers or chills or sweats. No productive cough. Pain with deep breaths. No known injury or trauma. Related Data Home Medications Medication Instructions Recorded Confirmed loratadine 10 mg tablet (Claritin) 10 mg PO DAILY 08/24/21 08/24/21 Allergies Allergy/AdvReac Type Severity Reaction Status Date / Time No Known Drug Allergies Allergy Unknown Verified 11/11/22 14:34 Review of Systems Review of Systems: All systems reviewed & are unremarkable except as noted in HPI and below Constitutional: Constitutional: Denies chills and Denies fever(s) Cardiovascular: Cardiovascular: Reports chest pain, Denies rapid heart rate and Denies radiating jaw, neck or arm pain Respiratory: Respiratory: Denies cough, Denies dyspnea and Denies wheezing Gastrointestinal: Gastrointestinal: Denies abdominal pain, Denies nausea and Denies vomiting Musculoskeletal: Musculoskeletal: Denies arthralgias and Denies joint swelling Neurologic: Denies focal weakness and Denies numbness Comments: left hand tingling PMFSH Past Medical History Medical History 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 She recently moved here from [place]. The patient continues to smoke about half pack a cigarettes a day. He typically does not drink any alcohol but said he had a couple shots of alcohol (vodka) this morning because his left jaw was hurting him. The patient denies any illicit drugs however he does occasionally smoke marijuana. His is the durable power insurance attorney for healthcare. Code status full code Smoking packs per day: 0.5 Smoking cigarettes per day: 10.0 Years smoked: 12 Smoking pack-years: 6.00 Smoking status: Current every day smoker Tobacco type: cigarettes Alcohol use details: Rare alcohol use Substance use type: marijuana Spiritual care concerns: No Exam Narrative: GENERAL: Well-appearing, well-nourished, and in no acute distress. HEAD: Normocephalic, atraumatic. CHEST: Clear to auscultation. No respiratory distress. No chest wall tenderness. HEART: Regular rate and rhythm. Normal peripheral pulses. ABDOMEN: Soft, nontender, nondistended. EXTREMITIES: Normal range of motion. No edema. No reproducible tenderness about the left shoulder. SKIN: Warm, dry, no rash. NEURO: Alert and oriented x3. No focal deficit in the left hand. PSYCH: Normal mood and affect. Course Course Emergency Course: Discomfort seems musculoskeletal in nature causing irritation and of the peripheral nerves. He could potentially have thoracic outlet syndrome. Recommend follow-up with PCP. Troponin negative. EKG normal. Vital Signs Vital signs: Vital Signs Temperature 98.1 F 11/11/22 14:31 Pulse Rate 7
== END 2022-11-11 16:38 | disposition home or self-care (01) ==
PROVIDERS: Emergency Medicine; Emergency Provider Emergency Medicine
DX: R07.89 Other chest pain (principal); M54.10 Radiculopathy, site unspecified; Z86.16 Personal history of COVID-19; F17.210 Nicotine dependence, cigarettes, uncomplicated
CPT/HCPCS: 36415; 71046; 80053; 83690; 84484; 85025; 85610; 85730; 93005; 99284

== ENCOUNTER 2023-04-24 15:51 | Emergency (ER) | payer OTHER, SELFPAY ==
[2023-04-24] VITALS (26 sets, daily range): BP systolic 131–152; BP diastolic 77–96; PULSE 56–72; RESP 10–21; TEMP 36.6; O2SAT 95–99
--- NOTE | ~2023-04-24 | XR_ITS ---
EXAMINATION: XR chest 2V DATE: 04/24/2023 16:26 INDICATION: Left chest pain. TECHNIQUE: Frontal and lateral views of the chest were obtained. COMPARISON: Chest 2 views 11/11/2022 FINDINGS: The chest demonstrates clear lungs without pneumonia, pleural effusion, or pneumothorax. Th e heart size is normal. IMPRESSION: 1. No acute cardiopulmonary disease. Reviewed, dictated and finalized at location A.
--- NOTE | 2023-04-24 16:01 | ECG_ITS ---
Measurements Intervals [place] Rate: 61 P: 34 NM: 132 QRS: 28 QRSD: 84 T: 59 QT: 370 QTc: 373 Interpretive Statements SINUS RHYTHM NORMAL ECG COMPARED TO ECG 11/11/2022 14:28:14 NO SIGNIFICANT CHANGES Electronically Signed On 04-25-2023 9:16:11 CDT by Shravan Coyle M.D.
[2023-04-24 16:55] LABS: Basophils Absolute Auto 0.1 K/mm3 (0.0-0.1); Basophils Percent Auto 0.6 % (0.2-1.2); Eosinophils Absolute Auto 0.1 K/mm3 (0-0.3); Eosinophils Percent Auto 1.2 % (0-4.4); Hematocrit 44.1 % (42.0-52.0); Hemoglobin 14.6 g/dL (14.0-18.0); Immature Granulocyte Absolute 0.03 K/mm3 (0.00-0.031); Immature Granulocyte Percent A 0.3 % (0-0.5); Lymphocytes Absolute Auto 1.79 K/mm3 (0.9-3.2); Lymphocytes Percent Auto 17.2 % (18.3-44.2); Mean Corpuscular HGB Conc 33.1 g/dl (32-36); Mean Corpuscular Hemoglobin 29.3 pg (26-34); Mean Corpuscular Volume 88.4 fl (80-100); Mean Platelet Volume 9.5 fl (7.4-10.4); Monocytes Absolute Auto 0.7 K/mm3 (0.1-0.6); Monocytes Percent Auto 6.6 % (2.6-8.5); Neutrophils Absolute Auto 7.7 K/mm3 (1.3-6.7); Neutrophils Percent Auto 74.1 % (45.5-73.1); Platelet Count Result 309 k/mm3 (150-375); Red Blood Count 4.99 M/mm3 (4.6-6.20); Red Cell Distribution Width 12.8 % (11.5-14.5); White Blood Count 10.4 K/mm3 (4.5-10.0)
[2023-04-24 17:11] LABS: Alanine Aminotransferase 28 U/L (6-50); Albumin Level 4.3 g/dL (3.5-5.1); Alkaline Phosphatase 68 U/L (38-126); Anion Gap 4 mmol/L (8-16); Aspartate Amino Transferase 30 U/L (17-59); Bilirubin,Total 0.6 mg/dL (0.2-1.3); Blood Urea Nitrogen 14 mg/dL (9-20); Carbon Dioxide 26 mmol/L (22-30); Chloride 104 mmol/L (98-107); Estimated CRCL calculation 98 ml/min; Estimated Glomerular Filt Rate > 60; Glucose 111 mg/dL (65-110); Lipase 23 U/L (23-300); Sodium 134 mmol/L (137-145)
[2023-04-24 17:14] LABS: Potassium 3.8 mmol/L (3.4-5.0)
[2023-04-24 17:17] LABS: Troponin I < 0.012 ng/mL (0.000-0.034)
--- NOTE | 2023-04-24 17:17 | ED.CHESTPAIN ---
HPI - Chest Pain General Chief Complaint: Chest Pain <Linda Turpin PA-C - Last Filed: 04/24/23 20:57> Stated Complaint: CP <Linda Turpin PA-C - Last Filed: 04/24/23 20:57> Time Seen by Provider: 04/24/23 17:04 <Linda Turpin PA-C - Last Filed: 04/24/23 20:57> History of Present Illness HPI narrative: 37-year-old male reports for evaluation for intermittent chest pain for the past few months, worsening over the past 2 days. Patient describes the chest pain throughout his anterior chest wall, mostly in the left anterior chest wall that at times radiates into his left axilla axilla and sometimes down to his elbow as well is between his scapula, and at times in his right axilla. He reports the pain is sharp in nature, lasts approximately 5 minutes at a time and occurs about 10 times per day the past 2 days. He states the pain can occur at any time whether he is sitting, walking. He does not notice association with ambulation or exercise. He denies shortness of breath or pleuritic pain. He does state at times when the pain is sharp and makes him feel nauseous, denies diaphoresis or vomiting. Denies abdominal pain, states it is not associated with eating. He denies fever, cough or congestion. Of note, the patient was hospitalized in 09/06 for myocarditis/pericarditis after he had elevated troponins. At that time, his echo showed no wall motion abnormalities with normal diastolic dysfunction and EF 70%. C performed 08/25 showing angiographically minimal coronary disease with right dominant circulation with about 30% stenosis of the mid trunk of the circumflex.? He was evaluated for chest pain in October and was sent home with naproxen and Flexeril which she reports improved his pain. 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 His chest pain improved while in EMS after provided a nitro. He is currently denying chest pain. <Linda Turpin PA-C - Last Filed: 04/24/23 20:57> Related Data Home Medications: Home Medications Medication Instructions Recorded Confirmed loratadine 10 mg tablet (Claritin) 10 mg PO DAILY 08/24/21 08/24/21 <Linda Turpin PA-C - Last Filed: 04/24/23 20:57> Allergies/Adverse Reactions: Allergies Allergy/AdvReac Type Severity Reaction Status Date / Time No Known Drug Allergies Allergy Unknown Verified 04/24/23 16:04 <Linda Turpin PA-C - Last Filed: 04/24/23 20:57> Review of Systems Review of Systems: CONSTITUTIONAL: Denies fever, chills EYES: Denies visual changes, redness, or discharge. ENT: Denies rhinorrhea, congestion, sore throat, or otalgia. CARDIOVASCULAR: See HPI RESPIRATORY: Denies cough or dyspnea. GASTROINTESTINAL: Denies abdominal pain, nausea, vomiting, or diarrhea. GENITOURINARY: Denies dysuria or hematuria. SKIN: Denies rash or itching. MUSCULOSKELETAL: Denies back pain, joint pain, or myalgia. NEUROLOGIC: Denies headache, numbness, dizziness, or weakness. PSYCHIATRIC: Denies anxiety or depression. 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 And multiple to implants <Linda Turpin PA-C - Last Filed: 04/24/23 20:57> Family History Family History: Family History Mother Diabetes mellitus <Linda Turpin PA-C - Last Filed: 04/24/23 20:57> Social History Social History: Social History (Reviewed 04/24/23 @
[2023-04-24 17:19] LABS: Partial Thromboplastin Time 22.5 SECONDS (22.3-36.8); Prothrombin Time 13.6 Seconds (11.1-14.7)
--- NOTE | 2023-04-24 19:05 | PC.NURSE ---
This RN assumed care of patient. This RN took report from JOSE E Mujica
[2023-04-24 19:59] LABS: Troponin I < 0.012 ng/mL (0.000-0.034)
[2023-04-24] MEDS: CYCLOBENZAPRINE HCL 10 MG TABLET PO (20:58)
[2023-04-24] MEDS: NAPROXEN 375 MG TABLET PO (20:58)
== END 2023-04-24 21:05 | disposition home or self-care (01) ==
PROVIDERS: Emergency Medicine; Emergency Provider Physician Assistant
DX: R07.89 Other chest pain (principal); F17.210 Nicotine dependence, cigarettes, uncomplicated
CPT/HCPCS: 36415; 71046; 80053; 83690; 84484; 85025; 85610; 85730; 93005; 99284; A9270